=== PATIENT | female | born 1980 | race African-American/Black ===

== ENCOUNTER 2023-03-30 06:58 | Emergency (ER) | payer SELFPAY ==
[2023-03-30] MEDS ORDERED: predniSONE 20 MG TAB ONE (07:30)
[2023-03-30] MEDS ORDERED: diphenhydrAMINE 25 MG CAP ONE (07:30)
[2023-03-30] MEDS ORDERED: Ketorolac Tromethamine 30 MG/ML VIAL ONE (07:30)
[2023-03-30] MEDS ORDERED: Famotidine 20 MG TAB ONE (07:30)
== END 2023-03-30 07:40 | disposition home or self-care (01) ==
LOC: MADERS 06:58
DX: L23.4 Allergic contact dermatitis due to dyes (principal); T50.995A Adverse effect of other drugs, medicaments and biological substances, initial encounter
CPT/HCPCS: 96372; 99282; J1885; J7512